=== PATIENT | male | born 1930 | race Caucasian/White ===

== ENCOUNTER 2020-06-17 23:54 | Emergency (ER) | payer SELFPAY ==
[~2020-06-17] VITALS: Ht 182.9 cm; Wt 79.5 kg
[2020-06-17 23:56] VITALS: Ht 182.9 cm; Wt 79.5 kg
[2020-06-18 00:41] VITALS: BP 173/82
== END 2020-06-18 02:15 | disposition home or self-care (01) ==
LOC: D.ER 23:54
DX: S60.222A Contusion of left hand, initial encounter (principal); S01.81XA Laceration without foreign body of other part of head, initial encounter; S51.012A Laceration without foreign body of left elbow, initial encounter; W19.XXXA Unspecified fall, initial encounter; Y93.9 Activity, unspecified; Y92.9 Unspecified place or not applicable